=== PATIENT | male | born 1940 | race Caucasian/White ===

== ENCOUNTER → 2017-03-06 | Outpatient (CLI) | payer MEDICARE ==
[~2017-03-06] MED LIST: AMLO5TAB PO; ASPIRIN 81MG TA81 MG PO; ATENOLOL100 MG PO; CILOSTAZOL100 M1 PO; LEVAQUIN500 MG PO; NICOTINE PATCH;21 MG TD; NORCO 325 MG-51 TAB PO; PREDNISONE 20MG20 MG PO; PROAIR HFA0.09 MG/AC IH; SALMETEROL-F28 PUFFS IN; VENTOLIN H0.09 MG/AC IH
--- NOTE | 2017-03-07 11:10 | RADIOLOGY REPORT PS360 ---
CT CHEST W/ CONTRAST Ordering Physician: Abundio Bateman MD Patient Age: 76 years: Male HISTORY: COUGH,WEIGHT LOSScough weight-loss smoker TECHNIQUE: Helical CT scanning performed through the chest with 75 cc [id number]-[id number] utilized. Sagittal and coronal reconstructions on CT workstation. COMPARISON is made to previous 11/21/2014 CT chest. LEFT LUNG. Marked volume loss left chest with prominent shift the mediastinum to left. This is due to the pronounced atelectasis & near complete collapse LLL. The airways leading to the LLL lobe have become quite thickened and become partially obliterated at left infrahilar region.-Bronchoscopy recommended to further evaluate airways in this region. Patient had some previous scarring at the LLL on October 2014 CT, but no interval progressive now prominent airway thickening seen here at infrahilar region since that time- associated with LLL volume loss.. I do not see any a dominant or definitive mass at the left kd. Only This diffuse prominent airway thickening... With Only Small portion LLL remaining aerated at superior segment. At periphery left midlung there is a pleural-based dome-shaped area of density. Broad-based. Again may reflect peripheral atelectasis but follow-up will be important to exclude a pleural-based mass associated here. (coronal slice 46/50; axial slice 41-35) right lung. Hyperexpanded. Clear. Emphysematous changes with slightly larger 2.5 cm bleb just above minor fissure at RUL again observed. The airways to the right appear to be of unchanged since 2015 exam. Borderline to mild thickening of central airways on right are again noted. No mediastinal adenopathy normass. Heart normal size markedly displaced to the left Chest wall no fractures nor lesions.. T-spine stable. Minor Old stable compression fracture T4 Upper most abdomen unremarkable.. Generous left and right adrenal similar to previous studies with no significant findings. IMPRESSION:...... 1. Marked volume loss LEFT CHEST, with very prominent shift mediastinum to the left. --This is due to near complete collapse of the LLL --. Prominent airway thickening appears to obstruct airways leading to the LLL... Prominent Progressive airway thickening here since 2015 CT chest. No definitive underlying central mass lesion can be identified.-Only very thickened central airways. Recommend pulmonary consult./Possible bronchoscopy. --There is also a dome-shaped pleural-based area left midlung which may reflect peripheral atelectasis and scarring but will require follow-up to exclude underlying pleural-based mass 2.. No mediastinal adenopathy no mass. 3. Right lung hyperexpanded but clear. With developing Emphysematous changes
== END ==
LOC: RAD 14:08
DX: R05 Cough (principal); R63.4 Abnormal weight loss
CPT/HCPCS: Q9967